=== PATIENT | female | born 1970 | race Caucasian/White ===

== ENCOUNTER 2018-06-08 12:05 | Outpatient (CLI) | payer OTHER ==
--- NOTE | 2018-06-08 13:02 | MMO ---
Bilateral MAMMO Bilat Screen [facility]. CLINICAL HISTORY: Patient is 48 years old and is seen for screening. The patient has no family history of breast cancer. The patient has no personal history of cancer. The patient has a history of right Ultrasound Guided Core Biopsy in ? - benign. VIEWS: The views performed were: bilateral craniocaudal with tomosynthesis and bilateral mediolateral oblique with tomosynthesis. FILMS COMPARED: The present examination has been compared to prior imaging studies performed at [facility] on 06/28/2012, 07/16/2012, 11/07/2013, 11/14/2014 and 04/17/2016. MAMMOGRAM FINDINGS: There are scattered fibroglandular densities. There are stable benign appearing calcifications seen in both breasts. There are no suspicious masses, suspicious calcifications, or new areas of architectural distortion. IMPRESSION: THERE IS NO MAMMOGRAPHIC EVIDENCE OF MALIGNANCY. A ROUTINE FOLLOW-UP MAMMOGRAM IN 1 YEAR IS RECOMMENDED. THE RESULTS OF THIS EXAM WERE SENT TO THE PATIENT. ACR BI-RADS Category 2 - Benign finding MAMMOGRAPHY NOTE: 1. A negative mammogram report should not delay a biopsy if a dominant of clinically suspicious mass is present. 2. Approximately 10% to 15% of breast cancers are not detected by mammography. 3. Adenosis and dense breasts may obscure an underlying neoplasm.
== END 2018-06-08 12:06 | disposition home or self-care (01) ==
LOC: BICMAMMO 12:05
PROVIDERS: ATTEND Obstetrics & Gynecology
DX: Z12.31 Encounter for screening mammogram for malignant neoplasm of breast (principal)
CPT/HCPCS: 77063; 77067

== ENCOUNTER 2020-02-24 09:29 | Outpatient (CLI) | payer OTHER ==
[2020-02-24] MEDS ORDERED: Magnevist 469MG/ML 20 ML VIAL ONE (10:52)
--- NOTE | 2020-02-24 11:16 | MRI ---
MRI of thebrain with and without contrast: 02/24/2020 COMPARISON:None available HISTORY:Visual disturbance, nystatin minutes, double vision, history of Covid infection TECHNIQUE: Multiplanar multisequence MR imaging of thebrain with and without contrast using and orbit s protocol Findings:The diffusion weighted imaging demonstrates no evidence for acute infarction. The sagittal T1-weighted imaging demonstrates normal marrow signal intensity. There is moderate degen erative change at the atlantoaxial interspace. There is a mass lesion within the sella and suprasellar region which is isointense on the T1 and the T2-weighted imaging. This lesion demonstrates a macrolobulated configuration and measures 2.5 cm in craniocaudal dimension, 1.9 cm in transverse dimension, and approximately 1.5 cm in AP dimension. On the postcontrast imaging this lesion demonstrates significant enhancement. Enhancing soft tissue abuts the cavernous carotid flow void on the right with findings suggesting right-sided cavernous sin us invasion. This lesion abuts the undersurface of the optic chiasm which is slightly displaced anteriorly. No ventricular enlargement, midline shift, or mass effect. No additional abnormal enhancement is identified within the brain parenchyma. The coronal fat saturated T2 weighted imaging demonstrates no abnormal enhancement involving the opti c nerves on either side. The intraconal fat, the extraocular muscles, and the globes appear grossly unremarkable. IMPRESSION: Lesion measuring up to 2.5 cm within an expanded sella turcica with significant suprasell ar extension abutting the undersurface of the optic chiasm and extending into the region of the right cavernous sinus. 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
== END 2020-02-24 09:30 | disposition home or self-care (01) ==
LOC: BICMRI 09:29
PROVIDERS: ATTEND Nurse Practitioner Acute Care
DX: H53.9 Unspecified visual disturbance (principal); E23.6 Other disorders of pituitary gland
CPT/HCPCS: 70553; 82565; A9579

== ENCOUNTER 2020-10-12 05:51 | Day surgery (SDC) | payer OTHER ==
[2020-10-11 12:21] VITALS: BMI 52.3
[2020-10-12] MEDS ORDERED: Fentanyl 100 MCG/2 ML VIAL ONE (07:42)
[2020-10-12] MEDS ORDERED: Lidocaine 1% PF 5 ML VIAL ONE (08:00)
[2020-10-12] MEDS ORDERED: PROPOFOL 200 MG/20 ML VIAL ONE (08:00)
== END 2020-10-12 09:16 | disposition home or self-care (01) ==
LOC: SDC 05:51
PROVIDERS: ATTEND Internal Medicine
PROC: 0DBM8ZX Excision of Descending Colon, Via Natural or Artificial Opening Endoscopic, Diagnostic (ICD-10-PCS; principal; 2020-10-12)
PROC: 0DB78ZX Excision of Stomach, Pylorus, Via Natural or Artificial Opening Endoscopic, Diagnostic (ICD-10-PCS; principal; 2020-10-12)
DX: Z12.11 Encounter for screening for malignant neoplasm of colon (principal); D12.4 Benign neoplasm of descending colon; K64.4 Residual hemorrhoidal skin tags; K64.8 Other hemorrhoids; K21.9 Gastro-esophageal reflux disease without esophagitis; I10 Essential (primary) hypertension; E78.5 Hyperlipidemia, unspecified; G89.4 Chronic pain syndrome; M19.90 Unspecified osteoarthritis, unspecified site; E78.00 Pure hypercholesterolemia, unspecified; M35.9 Systemic involvement of connective tissue, unspecified; E66.01 Morbid (severe) obesity due to excess calories; Z68.43 Body mass index [BMI] 50.0-59.9, adult; Z86.16 Personal history of COVID-19; Z79.899 Other long term (current) drug therapy; Z88.5 Allergy status to narcotic agent; Z88.6 Allergy status to analgesic agent
CPT/HCPCS: 88305; J2704; J3010